=== PATIENT | male | born 1935 | race Caucasian/White ===

== ENCOUNTER 2018-05-08 11:29 | Inpatient (IN) | payer MEDICARE ==
[~2018-05-08] VITALS: Ht 182.9 cm; Wt 108.9 kg
[~2018-05-08 11:29] MED LIST: ASPI-482 PO; ATOR10TA PO; BREO ELLIPTA 11 EACH INH; BUME1TAB PO; CARV12.5 PO; CEFP200T PO; CYAN10005 PO; FERR-36 PO; FURO-68 PO; GLUC100018 PO; HYDR-2766 PO; LISI10TA2 PO; MULT1TAB52 PO; OMEG300C PO; POTA10TA PO
--- NOTE | 2018-05-08 12:19 | PHYS DOC ---
Past Medical History Past Medical History: CHF, Hypertension Past Surgical History: Coronary Bypass Surgery, Hip Replacement, Knee Replacement, Other Additional Past Surgical Histo: back surgery Alcohol Use: None Drug Use: None Adult General Chief Complaint Chief Complaint: dyspnea and choking episode HPI HPI 83 yo M presenting to the ed today after [facility] a [facility]He was seen by his sales service assistant 2 days ago who increased his lasix dose to 80 mg. NH reports increasing O2 requirement. The pt feels generally weak which is worse when he sits up. He denies any pain. ROS neg for f/c/n/v. Neg for cp. All other review of systems is negative unless otherwise noted in history of present illness. ED course: 83 yo M with worsing soa and increasing o2 requirement. On arrival he is between 3 and 4 l/min. otherwise, afebrile and well appearing. ekg, cxr, blood work ordered. Blood work shows elevated proBNP. Creatinine mildly elevated. Urinalysis not suggestive of infection. Chest x-ray shows cardiomegaly with atelectasis versus pneumonia associated with mild left pleural effusion. We will cover with antibiotics and give the patient IV Lasix. I spoke with Dr. Ahmadi the patient's primary care physician. We will admit the patient to the hospital consult cardiology and pulmonology. Review of Systems Review of Systems SEE ABOVE. Current Medications Current Medications Current Medications Medications (Trade) Dose Ordered Sig/Barry Start Time Stop Time Status Last Admin Dose Admin Furosemide (Lasix) 40 mg 1X ONCE 05/08/18 14:00 05/08/18 14:01 DC 05/08/18 14:30 40 MG Levofloxacin/ Dextrose 150 ml @ 100 mls/hr 1X ONCE 05/08/18 14:00 05/08/18 15:29 DC 05/08/18 14:35 100 MLS/HR Morphine Sulfate (Morphine Sulfate) 2 mg PRN Q2HR PRN 05/08/18 13:30 05/09/18 13:29 Moxifloxacin HCl 250 ml @ 250 mls/hr 1X ONCE 05/08/18 13:30 05/08/18 14:29 UNV Ondansetron HCl (Zofran) 4 mg PRN Q8HRS PRN 05/08/18 13:30 05/09/18 13:29 Allergies Allergies Allergies Coded Allergies Type Severity Reaction Last Updated Verified Penicillins Allergy Intermediate 09/12/15 Yes Physical Exam Physical Exam SEE ABOVE Constitutional: Well developed, well nourished, no acute distress, non-toxic appearance. [] HENT: Normocephalic, atraumatic, bilateral external ears normal, oropharynx moist, no oral exudates, nose normal. [] Eyes: PERRLA, EOMI, conjunctiva normal, no discharge. [] Neck: Normal range of motion, no tenderness, supple, no stridor. [] Cardiovascular:Heart rate regular rhythm, no murmur [] Lungs & Thorax: mild crackles in the bases without wheezing. Abdomen: Bowel sounds normal, soft, no tenderness, no masses, no pulsatile masses. [] Skin: Warm, dry, no erythema, no rash. [] Back: No tenderness, no CVA tenderness. [] Extremities: No tenderness, no cyanosis, no clubbing, ROM intact, no edema. [] Neurologic: Alert and oriented X 3, normal motor function, normal sensory function, no focal deficits noted. [] Psychologic: Affect normal, judgement normal, mood normal. [] Current Patient Data Vital Signs Vital Signs Date Time Temp Pulse Resp B/P (MAP) Pulse Ox O2 Delivery O2 Flow Rate FiO2 05/08/18 14:30 62 22 132/66 (88) 96 Nasal Cannula 2.0 05/08/18 11:31 98.0 98.0 Lab Values Laboratory Tests Test 05/08/18 12:14 05/08/18 13:02 White Blood Count 5.7 x10^3/uL (4.0-11.0) Red Blood Count 3.31 x10^6/uL (4.30-5.70) L Hemoglobin 11.1 g/dL (13.0-17.5) L Hematocrit 32.9 % (39.0-53.0) L Mean Corpuscular Volume 99 fL (79-100) Mean Corpuscular Hemoglobin 34 pg (25-35) Mean Corpuscular Hemoglobin Concent 34 g/dL (31-37) Red Cell Distribution Width 14.2 % (11.5-14.5) Platelet Count 148 x10^3/uL (140-400) Neutrophils (%) (Auto) 78 % (31-73) H Lymphocytes (%) (Auto) 10 % (24-48) L Monocytes (%) (Auto) 9 % (0-9) Eosinophils (%) (Auto) 2 % (0-3) Basophils (%) (Auto) 1 % (0-3) Neutrophils # (Auto) 4.5 x10^3uL (1.8-7.7) Lymphocytes # (Auto) 0.6 x10^3/uL (1.0-4.8) L Monocytes # (Auto) 0.5 x10^3/uL (0.0-1.1) Eosinophils # (Auto) 0.1 x10^3/uL (0.0-0.7) Basophils # (Auto) 0.0 x10^3/uL (0.0-0.2) Sodium Level 142 mmol/L (136-145) Potassium Level 4.5 mmol/L (3.5-5.1) Chloride Level 100 mmol/L (98-107) Carbon Dioxide Level 41 mmol/L (21-32) H Anion Gap 1 (6-14) L Blood Urea Nitrogen 33 mg/dL (8-26) H Creatinine 1.5 mg/dL (0.7-1.3) H Estimated GFR (Cockcroft-Gault) 44.5 Glucose Level 127 mg/dL (70-99) H Calcium Level 9.3 mg/dL (8.5-10.1) Total Bilirubin 0.7 mg/dL (0.2-1.0) Direct Bilirubin 0.2 mg/dL (0.0-0.2) Aspartate Amino Transferase (AST) 20 U/L (15-37) Alanine Aminotransferase (ALT) 17 U/L (16-63) Alkaline Phosphatase 70 U/L (46-116) Troponin I Quantitative 0.021 ng/mL (0.000-0.055) BJ-Sek-B-Type Natriuretic Peptide 4908 pg/mL (0-449) H Total Protein 7.4 g/dL (6.4-8.2) Albumin 3.0 g/dL (3.4-5.0) L Lipase 211 U/L (73-393) Urine Collection Type Unknown Urine Color Yellow Urine Clarity Clear Urine pH 6.0 Urine Specific [place] 1.015 Urine Protein Negative mg/dL (NEG-TRACE) Urine Glucose (UA) Negative mg/dL (NEG) Urine Ketones (Stick) Negative mg/dL (NEG) Urine Blood Negative (NEG) Urine Nitrite Negative (NEG) Urine Bilirubin Negative (NEG) Urine Urobilinogen Dipstick 1.0 mg/dL (0.2 mg/dL) Urine Leukocyte Esterase Negative (NEG) Urine RBC 1-2 /HPF (0-2) Urine WBC 1-4 /HPF (0-4) Urine Squamous Epithelial Cells Mod /LPF Urine Bacteria 0 /HPF (0-FEW) Urine Hyaline Casts Many /HPF Urine Mucus Mod /LPF Laboratory Tests 05/08/18 12:14 Laboratory Tests 05/08/18 12:14 EKG EKG EKG reviewed by myself shows bipaced rhythm with appropriate repolarization. reg rate. Not suggestive of acs. Radiology/Procedures Radiology/Procedures [] Course & Med Decision Making Course & Med Decision Making Pertinent Labs and Imaging studies reviewed. (See chart for details) [] Dragon Disclaimer Dragon Disclaimer This electronic medical record was generated, in whole or in part, using a voice recognition dictation system. Departure Departure Impression: Primary Impression: Hypoxia Additional Impressions: CHF (congestive heart failure) Pneumonia Disposition: ADMITTED INPATIENT Admitting Physician: Araseli Ahmadi Condition: STABLE Referrals: REAL GODINEZ DO (PCP) Problem Qualifiers TG GUERRERO MD May 08, 2018 12:19
--- NOTE | 2018-05-08 12:30 | RAD ---
CHEST AP ONLY dated 05/08/2018 12:09 PM. Comparison: 11/14/2015 Clinical Indication: shortness of breath. SINGLE UPRIGHT Findings: Portable exam performed. Heart and mediastinal contours are stable. Patient is status post median sternotomy. Interval placement of a 3-lead left subclavian pacer/AICD. Long bones are low, limiting evaluation. There is elevation of left hemidiaphragm. Patchy airspace disease at the left lung base with blunting of the left costophrenic sulcus, increased from prior study. There is been interval improvement in right basilar airspace disease and pleural effusion compared to the prior exam. No pneumothorax. Impression: 1. Left basilar airspace disease, atelectasis versus pneumonia. There is a small to moderate size left pleural effusion. 2. Cardiomegaly. Electronically signed by: Jonathan Moreira MD (05/08/2018 12:27 PM) [id number]
[2018-05-08 12:31] LABS: BASO % 1 % (0-3); EOS # 0.1 x10^3/uL (0.0-0.7); EOS % 2 % (0-3); HEMATOCRIT 32.9 % (39.0-53.0); HEMOGLOBIN 11.1 g/dL (13.0-17.5); LYMPH # 0.6 x10^3/uL (1.0-4.8); LYMPH % 10 % (24-48); MEAN CORPUSCULAR HEMOGLOBIN 34 pg (25-35); MEAN CORPUSCULAR HGB CONC 34 g/dL (31-37); MEAN CORPUSCULAR VOLUME 99 fL (79-100); MONO # 0.5 x10^3/uL (0.0-1.1); MONO % 9 % (0-9); NEUT # 4.5 x10^3uL (1.8-7.7); NEUT % 78 % (31-73); PLATELET COUNT 148 x10^3/uL (140-400); RED BLOOD COUNT 3.31 x10^6/uL (4.30-5.70); RED CELL DISTRIBUTION WIDTH 14.2 % (11.5-14.5); WHITE BLOOD COUNT 5.7 x10^3/uL (4.0-11.0)
[2018-05-08 12:39] LABS: CALCIUM 9.3 mg/dL (8.5-10.1); CREATININE 1.5 mg/dL (0.7-1.3); GFR 44.5; POTASSIUM 4.5 mmol/L (3.5-5.1)
[2018-05-08 12:47] LABS: DIRECT BILIRUBIN 0.2 mg/dL (0.0-0.2); TOTAL BILIRUBIN 0.7 mg/dL (0.2-1.0); TOTAL PROTEIN 7.4 g/dL (6.4-8.2)
--- NOTE | 2018-05-08 13:02 | EKG ---
[facility] [address] [place] [address] Test Date: 2018-05-08 Test Time: 12:01:30 Pat Name: EMI PIPER Department: Room: Gender: M Behaviorist: : 1935 Requested By: TG GUERRERO Order Number: [id number] Reading MD: Den Morel MD Measurements Intervals [place] Rate: 67 P: 0 CT: 142 QRS: 114 QRSD: 162 T: -60 QT: 462 QTc: 491 Interpretive Statements SR PROBABLE BI-V PACING Electronically Signed On 05-09-2018 10:49:30 CDT by Den Morel MD
[2018-05-08 13:19] LABS: BILIRUBIN,URINE NEGATIVE (NEG); CLARITY,URINE CLEAR; COLOR,URINE YELLOW; NITRITE,URINE NEGATIVE (NEG); PROTEIN,URINE NEGATIVE (NEG-TRACE)
[2018-05-08] MEDS ORDERED: MOXIFLOXACIN 400 MG IV ONE (13:30)
[2018-05-08] MEDS ORDERED: MORPHINE SULFATE 2 MG/ML VIAL. IV PRN (13:30)
[2018-05-08] MEDS ORDERED: ONDANSETRON PF 4 MG/2 ML VIAL. IV PRN (13:30)
[2018-05-08 13:39] LABS: BACTERIA,URINE 0 /HPF (0-FEW); SQUAMOUS EPITHELIAL CELL,UR MOD /LPF
[2018-05-08 13:40] LABS: HYALINE CASTS, URINE MANY /HPF
[2018-05-08] MEDS ORDERED: FUROSEMIDE 40 MG/4 ML VIAL. IVP ONE (14:00)
[2018-05-08 18:35] VITALS: BP 144/68
[2018-05-08 19:23] VITALS: BP 119/56
[2018-05-08] MEDS ORDERED: ACET500T68 PO (20:41)
[2018-05-08] MEDS ORDERED: FURO80TA72 PO (20:41)
[2018-05-08] MEDS ORDERED: ASCO-78 PO (20:41)
[2018-05-08] MEDS ORDERED: ESCITALOPRAM OX10 MG PO (20:41)
[2018-05-08] MEDS ORDERED: MINE120C TP (20:41)
[2018-05-08] MEDS ORDERED: METO100T7 PO (20:41)
[2018-05-08] MEDS ORDERED: SENN1TAB21 PO (20:41)
[2018-05-08] MEDS ORDERED: SENNOSIDES/DOCUSATE 8.6/50MG TABLET. PO PRN (20:45)
[2018-05-08] MEDS ORDERED: IPRATRPIUM/ALBUTEROL 0.5/2.5MG 3 ML NEBU. NEB ONE (21:00)
[2018-05-08] MEDS: MINERAL OIL/PETROLATUM TOPICAL CREAM 113GM JAR. TP SCH (21:15)
[2018-05-08] MEDS: ATORVASTATIN CALCIUM 10 MG TABLET. PO SCH (22:56)
[2018-05-08 23:19] VITALS: BP 125/67
[2018-05-09] MEDS ORDERED: ACETAMINOPHEN 500 MG TABLET PO SCH
[2018-05-09 02:27] VITALS: BP 121/65
[2018-05-09 04:38] LABS: CALCIUM 9.2 mg/dL (8.5-10.1); CREATININE 1.4 mg/dL (0.7-1.3); GFR 48.2; POTASSIUM 4.1 mmol/L (3.5-5.1)
[2018-05-09 04:41] LABS: BASO % 0 % (0-3); EOS # 0.1 x10^3/uL (0.0-0.7); EOS % 2 % (0-3); HEMATOCRIT 30.1 % (39.0-53.0); HEMOGLOBIN 10.2 g/dL (13.0-17.5); LYMPH # 0.7 x10^3/uL (1.0-4.8); LYMPH % 14 % (24-48); MEAN CORPUSCULAR HEMOGLOBIN 33 pg (25-35); MEAN CORPUSCULAR HGB CONC 34 g/dL (31-37); MEAN CORPUSCULAR VOLUME 99 fL (79-100); MONO # 0.6 x10^3/uL (0.0-1.1); MONO % 11 % (0-9); NEUT # 3.8 x10^3uL (1.8-7.7); NEUT % 73 % (31-73); PLATELET COUNT 134 x10^3/uL (140-400); RED BLOOD COUNT 3.04 x10^6/uL (4.30-5.70); RED CELL DISTRIBUTION WIDTH 14.1 % (11.5-14.5); WHITE BLOOD COUNT 5.3 x10^3/uL (4.0-11.0)
[2018-05-09 07:00] VITALS: BP 155/69
[2018-05-09] MEDS: IPRATRPIUM/ALBUTEROL 0.5/2.5MG 3 ML NEBU. NEB SCH ×4 (07:21→19:39)
[2018-05-09] MEDS: BUDESONIDE 0.5 MG/2 ML NEBU. NEB SCH ×2 (07:21→19:39)
[2018-05-09] MEDS ORDERED: METOPROLOL TART IMMED RELEASE 50 MG TABLET. PO SCH (08:00)
[2018-05-09] MEDS ORDERED: NON FORMULARY ITEM (Fluticasone/Vilanterol (Breo Ellipta 100-25 Mcg Inh) 1 PUFF) INH SCH (09:00)
[2018-05-09] MEDS: CYANOCOBALAMIN (VITAMIN B-12) 1,000 MCG TABLET. PO SCH (09:14)
[2018-05-09] MEDS: MINERAL OIL/PETROLATUM TOPICAL CREAM 113GM JAR. TP SCH ×2 (09:14→21:00)
[2018-05-09] MEDS: FERROUS SULFATE 325 MG TABLET. PO SCH (09:14)
[2018-05-09] MEDS: ASPIRIN ENTERIC COATED 81 MG TABLET.DR. PO SCH (09:14)
[2018-05-09] MEDS: CITALOPRAM 20 MG TABLET. PO SCH (09:15)
[2018-05-09] MEDS: ASCORBIC ACID 500 MG TABLET PO SCH (09:15)
--- NOTE | 2018-05-09 10:12 | PDOC2 ---
AMILCAR HOOD PRINCIPAL ARCHAEOLOGIST 05/09/18 1012: CARDIAC CONSULT DATE OF CONSULT Date of Consult DATE: 05/09/18 TIME: 09:59 REASON FOR CONSULT Reason for Consult: CHF REFERRING PHYSICIAN Referring Physician: Galdino SOURCE Source: Chart review, Patient HISTORY OF PRESENT ILLNESS HISTORY OF PRESENT ILLNESS This is an 83 yo male admitted complains of SOA and weakness. He is a poor historian. Reports that he has been SOA in the last 2 days. In the last week he has been progressively weaker. He has been urinating more but denies any chills, palpitations nor chest pain. No increased leg edema. He could not recall who he sees at [facility] cardiology and what brand his defibrillator is. He lives in a chcf with nearest relative his son. His lasix has just been increased to 80 mg 3 days ago. He uses O2 2LPM at the chcf. Currently reports no CP, SOA with supplemental O2 and laying supine without distress. No complains of chills or fever and no increased productive coughing. Verbalized that he does not move much at the [facility] home. PAST MEDICAL HISTORY Past Medical History Cardiovascular: CAD, CHF, HTN, Hyperlipidemia, Other (PVD, venous insufficiency ), Cardiomyopathy EF 35% Pulmonary: COPD, pulmonary HTN, PNA CENTRAL NERVOUS SYSTEM: ataxia GI: GERD Heme/Onc: Anemia Hepatobiliary: No pertinent hx Psych: Depression Rheumatologic: No pertinent hx Infectious disease: No pertinent hx ENT: CHILKOOT Renal/: CKD Endocrine: No pertinent hx Dermatology: No pertinent hx MSK: OA PAST SURGICAL HISTORY Past Surgical History CABG, Other (left hip and knee replacement, back sx), AICD FAMILY HISTORY Family History: Diabetes SOCIAL HISTORY Smoke: No ALCOHOL: none Drugs: None Lives: Assisted CURRENT MEDICATIONS CURRENT MEDICATIONS Current Medications Medications (Trade) Dose Ordered Sig/Barry Route PRN Reason Start Time Stop Time Status Last Admin Dose Admin Furosemide (Lasix) 40 mg 1X ONCE IVP 05/08/18 14:00 05/08/18 14:01 DC 05/08/18 14:30 Levofloxacin/ Dextrose 150 ml @ 100 mls/hr 1X ONCE IV 05/08/18 14:00 05/08/18 15:29 DC 05/08/18 14:35 Aspirin (Ecotrin) 81 mg DAILY PO 05/09/18 09:00 05/09/18 09:14 Atorvastatin Calcium (Lipitor) 10 mg QHS PO 05/08/18 21:15 05/08/18 22:56 Cyanocobalamin (Vitamin B-12) 1,000 mcg DAILY PO 05/09/18 09:00 05/09/18 09:14 Ferrous Sulfate (Feosol) 325 mg DAILY PO 05/09/18 09:00 05/09/18 09:14 Multi-Ingred Cream/Lotion/Oil/ Oint (Hydrocerin Cream) 1 toby BID TP 05/08/18 21:15 05/09/18 09:14 Ascorbic Acid (Vitamin C) 500 mg DAILY08 PO 05/09/18 08:00 05/09/18 09:15 Citalopram Hydrobromide (CeleXA) 20 mg DAILY PO 05/09/18 09:00 05/09/18 09:15 Metoprolol Tartrate (Lopressor) 100 mg DAILY08 PO 05/09/18 08:00 05/09/18 09:15 Albuterol/ Ipratropium (Duoneb) 3 ml RTQID [facility] 05/09/18 08:00 05/09/18 07:21 Albuterol/ Ipratropium (Duoneb) 3 ml 1X ONCE NEB 05/08/18 21:00 05/08/18 21:01 DC 05/08/18 20:57 Budesonide (Pulmicort) 0.5 mg RTBID [facility] 05/09/18 08:00 05/09/18 07:21 ALLERGIES ALLERGIES: Coded Allergies: Penicillins (Verified Allergy, Intermediate, 09/12/15) ROS Review of System limited, poor historian PHYSICAL EXAM General: Alert, Cooperative, No acute distress HEENT: Atraumatic, Mucous membr. moist/pink Lungs: Other (basilar crackles) Heart: Regular rate (atrial paced with intermittent PVCs. ), Other (4/6 systolic murmur to DEMOND borderr) Abdomen: Soft, No tenderness Extremities: No cyanosis, No edema Skin: Other (RLE wound with dressing; LE brownish hyperpigmentation) Neuro: Normal speech, Sensation intact Psych/Mental Status: Other (falt affect) MUSCULOSKELETAL: Osteoarthritic changes both hands, Other (significant hammertoes) VITALS VITALS Vital Signs Date Time Temp Pulse Resp B/P (MAP) Pulse Ox O2 Delivery O2 Flow Rate FiO2 05/09/18 09:15 65 05/09/18 07:12 97 Nasal Cannula 2.0 05/09/18 07:00 98.5 22 155/69 (97) 98.5 LABS Lab: Laboratory Tests Test 05/08/18 12:14 05/08/18 13:02 05/09/18 03:45 White Blood Count 5.7 x10^3/uL (4.0-11.0) 5.3 x10^3/uL (4.0-11.0) Red Blood Count 3.31 x10^6/uL (4.30-5.70) 3.04 x10^6/uL (4.30-5.70) Hemoglobin 11.1 g/dL (13.0-17.5) 10.2 g/dL (13.0-17.5) Hematocrit 32.9 % (39.0-53.0) 30.1 % (39.0-53.0) Mean Corpuscular Volume 99 fL (79-100) 99 fL (79-100) Mean Corpuscular Hemoglobin 34 pg (25-35) 33 pg (25-35) Mean Corpuscular Hemoglobin Concent 34 g/dL (31-37) 34 g/dL (31-37) Red Cell Distribution Width 14.2 % (11.5-14.5) 14.1 % (11.5-14.5) Platelet Count 148 x10^3/uL (140-400) 134 x10^3/uL (140-400) Neutrophils (%) (Auto) 78 % (31-73) 73 % (31-73) Lymphocytes (%) (Auto) 10 % (24-48) 14 % (24-48) Monocytes (%) (Auto) 9 % (0-9) 11 % (0-9) Eosinophils (%) (Auto) 2 % (0-3) 2 % (0-3) Basophils (%) (Auto) 1 % (0-3) 0 % (0-3) Neutrophils # (Auto) 4.5 x10^3uL (1.8-7.7) 3.8 x10^3uL (1.8-7.7) Lymphocytes # (Auto) 0.6 x10^3/uL (1.0-4.8) 0.7 x10^3/uL (1.0-4.8) Monocytes # (Auto) 0.5 x10^3/uL (0.0-1.1) 0.6 x10^3/uL (0.0-1.1) Eosinophils # (Auto) 0.1 x10^3/uL (0.0-0.7) 0.1 x10^3/uL (0.0-0.7) Basophils # (Auto) 0.0 x10^3/uL (0.0-0.2) 0.0 x10^3/uL (0.0-0.2) Sodium Level 142 mmol/L (136-145) 143 mmol/L (136-145) Potassium Level 4.5 mmol/L (3.5-5.1) 4.1 mmol/L (3.5-5.1) Chloride Level 100 mmol/L (98-107) 101 mmol/L (98-107) Carbon Dioxide Level 41 mmol/L (21-32) 43 mmol/L (21-32) Anion Gap 1 (6-14) -1 (6-14) Blood Urea Nitrogen 33 mg/dL (8-26) 32 mg/dL (8-26) Creatinine 1.5 mg/dL (0.7-1.3) 1.4 mg/dL (0.7-1.3) Estimated GFR (Cockcroft-Gault) 44.5 48.2 Glucose Level 127 mg/dL (70-99) 104 mg/dL (70-99) Calcium Level 9.3 mg/dL (8.5-10.1) 9.2 mg/dL (8.5-10.1) Total Bilirubin 0.7 mg/dL (0.2-1.0) Direct Bilirubin 0.2 mg/dL (0.0-0.2) Aspartate Amino Transf (AST/SGOT) 20 U/L (15-37) Alanine Aminotransferase (ALT/SGPT) 17 U/L (16-63) Alkaline Phosphatase 70 U/L (46-116) Troponin I Quantitative 0.021 ng/mL (0.000-0.055) DQ-Owb-S-Type Natriuretic Peptide 4908 pg/mL (0-449) Total Protein 7.4 g/dL (6.4-8.2) Albumin 3.0 g/dL (3.4-5.0) Lipase 211 U/L (73-393) Urine Collection Type Unknown Urine Color Yellow Urine Clarity Clear Urine pH 6.0 Urine Specific [place] 1.015 Urine Protein Negative mg/dL (NEG-TRACE) Urine Glucose (UA) Negative mg/dL (NEG) Urine Ketones (Stick) Negative mg/dL (NEG) Urine Blood Negative (NEG) Urine Nitrite Negative (NEG) Urine Bilirubin Negative (NEG) Urine Urobilinogen Dipstick 1.0 mg/dL (0.2 mg/dL) Urine Leukocyte Esterase Negative (NEG) Urine RBC 1-2 /HPF (0-2) Urine WBC 1-4 /HPF (0-4) Urine Squamous Epithelial Cells Mod /LPF Urine Bacteria 0 /HPF (0-FEW) Urine Hyaline Casts Many /HPF Urine Mucus Mod /LPF ECHOCARDIOGRAM ECHOCARDIOGRAM <Conclusion> Severe hypokinesis of mid to distal anterior and anteroseptal baca and the apical wall. The Ejection Fraction is estimated at 30-35%. The left atrium is mildly dilated. There is mild valvular aortic stenosis. Mild aortic regurgitation. Trace mitral regurgitation. Mild tricuspid regurgitation. There is moderate pulmonary hypertension. The PA pressure was estimated at 60 mmHg. There is no evidence of significant pericardial effusion. DATE: 11/11/15 1139 STRESS TEST STRESS TEST Conclusion 1. Regadenoson cardioisotope stress test showed moderate infarct involving the distal anterior wall, apical wall and inferoapical wall with small amount of ngozi-infarct ischemia. 2. Apical wall hypokinesis with ejection fraction calculated at 44%. 3. Low to intermediate risk for cardiac events. DATE: 11/16/15 1433 ASSESSMENT/PLAN ASSESSMENT/PLAN 1. Acute on chronic systolic CHF: follows at [facility] cardiology per pt. 2. COPD/pulmonary HTN/pleural effusion/possible aspiration: O2 dependent. 3. AICD in situ: intermittent atrial pacing. 4. ICM: last known EF at 35% 5. HTN; controlled 6. HLP 7. CAD: past CABG 8. suspect CKD3 9. 10. Debility/ataxia Recommendations 1. TTE, TSH lipids 2. interrogate device once brand is known 3. lasix therapy. 4. Continue with secondary prevention 5. Pulmonary consult pending. 6. Speech eval. ANY MCGRAW MD 05/09/18 1527: CARDIAC CONSULT ASSESSMENT/PLAN ASSESSMENT/PLAN Patient seen and examined. Agree with above nurse practitioner note. 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 No obvious effusion is noted in the pericardial space. Given his debility and multiple comorbidities would suggest conservative management. If after optimization of his pulmonary status he continues to have dyspnea could then consider a right heart catheterization if needed. Thank you for this consultation. We will follow along with you. AMILCAR HOOD APRN May 09, 2018 10:12 ANY MCGRAW MD May 09, 2018 15:27
[2018-05-09 10:34] LABS: CHOLESTEROL/HDL RATIO 3.7
[2018-05-09 11:00] VITALS: BP 139/77
[2018-05-09] MEDS: FUROSEMIDE 40 MG/4 ML VIAL. IVP SCH ×2 (12:17→19:18)
--- NOTE | 2018-05-09 12:29 | CONS ---
DATE OF CONSULTATION: ATTENDING PHYSICIAN: Dr. Ahmadi. REASON FOR CONSULTATION: Pleural effusion. HISTORY OF PRESENT ILLNESS: The patient is an 83-year-old male who has no significant history of tobacco use. He utilizes oxygen at home and recently. He was brought into the hospital after having some increasing dyspnea and some vague chest wall pain in the left side. He has some choking episode as well. The patient has recently had an increase in the dose of Lasix. He has chronic venous stasis and lower extremity edema. [facility] report suggests that he has been requiring increasing amount of oxygen. Denies any headaches and no cough, no chest pain, no anterior chest pain. No nausea or vomiting, no diarrhea, no dysuria. No focal weakness. No skin rash. He does have venous stasis in the lower extremities. I have reviewed his chest x-ray and it shows that there is increase in the size of the effusion, which also appears to be partially loculated in the left side. There is markedly elevated left hemidiaphragm. There may be some infiltrate in the left base as well. We have been asked to see him for further evaluation. PAST MEDICAL HISTORY: History of CHF, history of previous echo in 2016 with an EF of 30-35%. History of elevated left hemidiaphragm and history of hypertension. PAST SURGICAL HISTORY: Coronary artery bypass surgery, hip replacement, knee replacement and back surgery. ALLERGIES: PENICILLIN. MEDICATIONS: Reviewed as listed in the MRAD including diuretics and bronchodilators. REVIEW OF SYSTEMS: Twelve-point system obtained. Pertinent positives discussed in my history of present illness, otherwise noncontributory. All systems that were negative were reviewed as well. SOCIAL HISTORY: Nonsmoker. PHYSICAL EXAMINATION: VITAL SIGNS: Reviewed. Pulse ox 91% on 2 liters. Afebrile. HEENT: Sclerae nonicteric. NECK: Supple. LUNGS: Diminished breath sounds left base. CARDIOVASCULAR: Regular rate and rhythm. ABDOMEN: Soft. EXTREMITIES: With venous stasis and lower extremity edema and erythema. LABORATORY DATA: Reviewed. White cell count 5.3, hemoglobin 10.2, and platelets of 134. BUN is 32 and creatinine 1.4. IMPRESSION: 1. Acute hypoxic respiratory failure secondary to increasing left-sided pleural effusion. Likely etiology is related to congestive heart failure, acute on chronic. 2. Highly suspected [id number] systolic heart failure with increasing left-sided effusion. 3. Abnormal chest x-ray with increasing left-sided effusion and also markedly elevated left hemidiaphragm with some compressive atelectasis versus infiltrate in the left lower lobe. The effusion appears to be partially loculated. We will obtain noncontrast CT chest for further evaluation. 4. Acute kidney injury. 5. No significant history of tobacco use. RECOMMENDATIONS: 1. Continue with present diuresis. 2. Follow up another echocardiogram, last echo had an EF of 30-35%. 3. Noncontrast CT chest to better assess the need for thoracentesis. d/w patient. He is agreeable with procedure if needed. 4. Continue bronchodilators. 5. Continue oxygen. 6. At this time, we will hold off on any antibiotics until CT chest is done. 7. Discussed with RN and we will follow along with you. DEBRA AARON MD DR: REJI/thomas JOB#: [id number] / [id number] JACQUES
--- NOTE | 2018-05-09 14:13 | HP ---
ADMIT DATE: 05/08/2018 HISTORY OF PRESENT ILLNESS: The patient is an 83-year-old male patient, a resident at [facility] in [place], who was brought to the Emergency Room as he was noted to have a choking episode with increasing dyspnea at the assisted. He was seen by his nurse practitioner 2 days ago and increased Lasix to 80 mg. He is normally on 2 liters of oxygen. Apparently, they increased the oxygen to 5 liters and continued to be hypoxic. He felt generally weak, which is worst when he sits up. He denied any chest pain. He was evaluated in the Emergency Room where he was afebrile. His ABG, chest x-ray and all lab works were done. He has elevated proBNP. His creatinine was mildly elevated. Urinalysis showed no evidence of infection and chest x-ray shows cardiomegaly with atelectasis versus pneumonia associated with mild left pleural effusion. He was started on IV antibiotic and continued all his medication. He was admitted to be seen by the Cardiology team as well as the wharf worker. PAST MEDICAL HISTORY: Significant for hypertension, coronary artery disease, chronic congestive heart failure, hyperlipidemia, ischemic cardiomyopathy. He has lumbar spinal stenosis, paroxysmal SVT, status post CABG, his ejection fraction is approximately 35% by echo on 04/26/2017. He has a biventricular ICD. He is known to have venous insufficiency, bilateral lower extremity edema, lower extremity venous stasis ulcers, generalized weakness and recurrent falls. PAST SURGICAL HISTORY: Significant for coronary artery bypass graft surgery and biventricular ____ placement. ALLERGIES: He is allergic to PENICILLIN. SOCIAL HISTORY: He apparently lives on his own; however, currently he is a resident at [facility]. He never smoked, never used smokeless tobacco, does not use any recreational drugs. He used to be a oneill. FAMILY HISTORY: Positive for coronary artery disease and heart attack in his father and skin cancer in his father. REVIEW OF SYSTEMS: The patient stated that he denied any nausea or vomiting. He did complain of cough. Denied any chest pain. He did complain of shortness of breath, generalized weakness. MEDICATIONS: He is currently on following medications: He is on ferrous sulfate 325 mg daily, atorvastatin calcium 10 mg at bedtime, metoprolol tartrate 100 mg daily, aspirin 81 mg once a day, acetaminophen 500 mg every 6 hours, escitalopram oxalate 10 mg daily, potassium chloride 10 mEq once a day, furosemide 40 mg 3 times a week and fluticasone/vilanterol for Breo Ellipta 1 inhalation daily. He is on Senna-S 2 tablets once a day, mineral oil ____ twice a day, cyanocobalamin (vitamin B12) 1000 mcg once a day, ascorbate 500 mg once a day. PHYSICAL EXAMINATION: GENERAL: On arrival to the Emergency Room, he looked pale, but not jaundiced, cyanosis, or thyromegaly. No jugular venous distension. No lower limb edema. VITAL SIGNS: His heart rate was 60, blood pressure was 125/66, temperature was 98, respiratory rate was 18 and oxygen saturation was 95% on 3 liters oxygen. HEAD, EYES, EARS, NOSE AND THROAT: Showed normocephalic, atraumatic. NECK: Supple. HEART: Showed normal first and second heart sounds. No gallop, rub or murmur. CHEST: Clear to auscultation. No crepitation or rhonchi. ABDOMEN: Slightly distended, soft, nontender. No guarding or rigidity. No organomegaly. Hernial orifice intact. Bowel sounds normal. NEUROLOGIC: He was hard of hearing, otherwise all other cranial nerves are intact. He moves his upper extremities to much good extent than lower extremities. He is mostly bedbound, chair bound. EXTREMITIES: Showed no clubbing, cyanosis or edema, although the patient has chronic venous stasis. LABORATORY DATA: On admission showed a white cell count 5700, hemoglobin 11, hematocrit 33, MCV 99, and platelet count of 148,000. His chemistry showed serum sodium 142, potassium 4.5, chloride 100, bicarbonate 41, anion gap of 1, BUN 33, creatinine was 1.5, estimated GFR was 44 mL per minute, his glucose 127, calcium was 9.3. Total bilirubin, AST, ALT, alkaline phosphatase were normal. His total protein was 7.4, albumin 3 and serum lipase was 200. His is beta natriuretic peptide was 4900. ASSESSMENT AND PLAN: The patient was admitted, continued on all his medication and consulted the Cardiology team as well as the wharf worker. Will do 2 more sets of cardiac enzyme. First set of cardiac enzyme was slightly elevated at 0.021 and decide further management accordingly. MESFIN TERRELL MD DR: Beena JOB#: [id number] / [id number]
--- NOTE | 2018-05-09 14:34 | RAD ---
CT of the chest without contrast, 05/09/2018: HISTORY: Loculated left pleural effusion Noncontrast scans were obtained as requested. Comparison is made to a study from 09/12/2015. There has been a previous median sternotomy. Transvenous pacing leads extend into the heart. There are also old epicardial leads present anteriorly. The heart is generally enlarged. A calcification at the cardiac apex is probably pericardial. There is calcific plaquing and tortuosity of the thoracic aorta. The ascending aorta measures 4.5 cm in width. It appears unchanged since 09/12/2015. There is extensive coronary artery calcification. No mediastinal adenopathy is seen. There is chronic elevation of the left hemidiaphragm. There is a large left pleural effusion which has increased in size since the previous study. The left lower lobe is completely atelectatic. There is moderate partial atelectasis of the left upper lobe. A small amount of right-sided pleural fluid is present. There is mild atelectasis posteriorly in the right lower lobe. The aerated portions of both lungs demonstrate hazy groundglass opacities and interlobular septal thickening most likely due to edema. There is a mild right convexity thoracic scoliosis with moderate multilevel degenerative change. IMPRESSION: 1. Increasing large left pleural effusion with complete atelectasis of the left lower lobe and partial atelectasis of the left upper lobe. 2. Small right pleural effusion with mild right lower lobe atelectasis. 3. Hazy groundglass opacities and interlobular septal thickening in both lungs suggesting mild pulmonary edema. 4. Cardiomegaly with extensive coronary artery calcifications. 5. Unchanged dilatation of the ascending aorta. PQRS Compliance Statement: One or more of the following individualized dose reduction techniques were utilized for this examination: 1. Automated exposure control 2. Adjustment of the mA and/or kV according to patient size 3. Use of iterative reconstruction technique Electronically signed by: Yvon Trinidad MD (05/09/2018 2:31 PM) [facility]
[2018-05-09 15:00] VITALS: BP 157/73
--- NOTE | 2018-05-09 15:40 | CARD ---
MR#: [id number] Date of Study: 05/09/2018 Ordering Physician: AMILCAR HOOD, Referring Physician: MESFIN TERRELL Tech: Rajni Mathias RDCS APPROVED REPORT EXAM: Two-dimensional and M-mode echocardiogram with Doppler and color Doppler. Other Information Quality : Good INDICATION Congestive Heart Failure 2D DIMENSIONS RVDd1.7 (2.9-3.5cm)Left Atrium(2D)3.6 (1.6-4.0cm) IVSd1.0 (0.7-1.1cm)Aortic Root(2D)3.6 (2.0-3.7cm) LVDd5.0 (3.9-5.9cm)LVOT Diameter2.4 (1.8-2.4cm) PWd1.0 (0.7-1.1cm)LVDs3.3 (2.5-4.0cm) FS (%) 35.5 %SV78.3 ml M-Mode DIMENSIONS Aortic Cusp Exc1.28 (1.5-2.0cm) Aortic Valve AoV Peak Chan.242.7cm/sAoV VTI53.0cm AO Peak GR.23.6mmHgLVOT VTI 23.07cm AO Mean GR.15mmHgAVA (VTI)2.00cm2 AI P 1/2 Qtqg737fp Mitral Valve MV E Tnzxewxk95.8cm/sMV DECEL [id number] MV A Srccpgna55.7cm/sE/A Ratio3.3 TDI Lateral E' P. V4.40cm/sMedial E' P. V3.91cm/s E/Lateral E'21.5E/Medial E'24.2 Tricuspid Valve TR P. Qlodcqjx917pj/sRAP IDOQSUQV4ymBj TR Peak Gr.40wrKgHRHH05jhPj Pulmonary Vein S1 Bpeztucx74.2cm/sS2 Nfnvbnam27.10cm/s D2 Ealpmhtx05.1cm/s LEFT VENTRICLE The left ventricle is normal size. There is normal left ventricular wall thickness. The Ejection Frac tion is 55%.. Apical wall is akinetic. Transmitral Doppler flow pattern is consistent with restrictiv e diastolic dysfunction. RIGHT VENTRICLE The right ventricle is normal size. The right ventricular systolic function is normal. There is a pac emaker lead in the right ventricle. ATRIA The left atrium size is normal. The right atrium size is normal. A pacemaker is seen in the right atr ium consistent with history. The interatrial septum is intact with no evidence for an atrial septal d efect or patent foramen ovale as noted on 2-D or Doppler imaging. AORTIC VALVE The aortic valve is moderately thickened. Doppler and Color Flow revealed mild aortic regurgitation. There is no significant aortic valvular stenosis. MITRAL VALVE The mitral valve is calcified but opens well. There is no evidence of mitral valve prolapse. There is no mitral valve stenosis. Doppler and Color Flow revealed no mitral valve regurgitation noted. TRICUSPID VALVE The tricuspid valve is normal in structure and function. Doppler and Color Flow revealed trace tricus pid regurgitation. There is mild pulmonary hypertension. The PA pressure was estimated at 39 mmHg. Th ere is no tricuspid valve stenosis. PULMONIC VALVE The pulmonic valve is not well visualized. Doppler and Color Flow revealed no pulmonic valvular regur gitation. There is no pulmonic valvular stenosis. GREAT VESSELS The aortic root is normal in size. The ascending aorta is normal in size. The IVC was not visualized. PERICARDIAL EFFUSION There is no evidence of significant pericardial effusion. Critical Notification Critical Value: No <Conclusion> Apical wall is akinetic. The Ejection Fraction is 55%.. Transmitral Doppler flow pattern is consistent with restrictive diastolic dysfunction. A pacemaker is seen in the right atrium and right ventricle consistent with history. Mild aortic regurgitation. Trace tricuspid regurgitation. The PA pressure was estimated at 39 mmHg. There is no evidence of significant pericardial effusion. Signed by : Yogi Ch, Electronically Approved : 05/09/2018 15:40:20
[2018-05-09] MEDS: ATORVASTATIN CALCIUM 10 MG TABLET. PO SCH (19:17)
[2018-05-09] MEDS: ACETAMINOPHEN 500 MG TABLET PO PRN (19:17)
[2018-05-09 19:42] VITALS: BP 131/60
[2018-05-09 23:39] VITALS: BP 125/71
[2018-05-10] VITALS (7 sets, daily range): BP systolic 104–144; BP diastolic 60–72
[2018-05-10] MEDS: BUDESONIDE 0.5 MG/2 ML NEBU. NEB SCH ×2 (07:16→20:10)
[2018-05-10] MEDS: IPRATRPIUM/ALBUTEROL 0.5/2.5MG 3 ML NEBU. NEB SCH ×4 (07:17→20:10)
[2018-05-10 08:49] LABS: PROTHROMBIN TIME PATIENT 14.9 SEC (11.7-14.0)
[2018-05-10] MEDS: MINERAL OIL/PETROLATUM TOPICAL CREAM 113GM JAR. TP SCH ×2 (09:00→20:47)
[2018-05-10] MEDS: FUROSEMIDE 40 MG/4 ML VIAL. IVP SCH ×2 (09:00→15:22)
--- NOTE | 2018-05-10 12:14 | PDOC ---
PULMONARY PROGRESS NOTES Subjective no soa Vitals Vital Signs Date Time Temp Pulse Resp B/P (MAP) Pulse Ox O2 Delivery O2 Flow Rate FiO2 05/10/18 12:05 Nasal Cannula 2.0 05/10/18 11:10 97.7 62 18 142/72 (95) 91 97.7 General: Alert, No acute distress Lungs: Other (decrease bs left base) Cardiovascular: S1, S2, Other Abdomen: Soft, Non-tender Extremities: Other (1+edema) Labs Laboratory Tests Test 05/08/18 12:14 05/08/18 13:02 05/08/18 22:30 05/09/18 03:45 White Blood Count 5.7 x10^3/uL (4.0-11.0) 5.3 x10^3/uL (4.0-11.0) Red Blood Count 3.31 x10^6/uL (4.30-5.70) 3.04 x10^6/uL (4.30-5.70) Hemoglobin 11.1 g/dL (13.0-17.5) 10.2 g/dL (13.0-17.5) Hematocrit 32.9 % (39.0-53.0) 30.1 % (39.0-53.0) Mean Corpuscular Volume 99 fL (79-100) 99 fL (79-100) Mean Corpuscular Hemoglobin 34 pg (25-35) 33 pg (25-35) Mean Corpuscular Hemoglobin Concent 34 g/dL (31-37) 34 g/dL (31-37) Red Cell Distribution Width 14.2 % (11.5-14.5) 14.1 % (11.5-14.5) Platelet Count 148 x10^3/uL (140-400) 134 x10^3/uL (140-400) Neutrophils (%) (Auto) 78 % (31-73) 73 % (31-73) Lymphocytes (%) (Auto) 10 % (24-48) 14 % (24-48) Monocytes (%) (Auto) 9 % (0-9) 11 % (0-9) Eosinophils (%) (Auto) 2 % (0-3) 2 % (0-3) Basophils (%) (Auto) 1 % (0-3) 0 % (0-3) Neutrophils # (Auto) 4.5 x10^3uL (1.8-7.7) 3.8 x10^3uL (1.8-7.7) Lymphocytes # (Auto) 0.6 x10^3/uL (1.0-4.8) 0.7 x10^3/uL (1.0-4.8) Monocytes # (Auto) 0.5 x10^3/uL (0.0-1.1) 0.6 x10^3/uL (0.0-1.1) Eosinophils # (Auto) 0.1 x10^3/uL (0.0-0.7) 0.1 x10^3/uL (0.0-0.7) Basophils # (Auto) 0.0 x10^3/uL (0.0-0.2) 0.0 x10^3/uL (0.0-0.2) Sodium Level 142 mmol/L (136-145) 143 mmol/L (136-145) Potassium Level 4.5 mmol/L (3.5-5.1) 4.1 mmol/L (3.5-5.1) Chloride Level 100 mmol/L (98-107) 101 mmol/L (98-107) Carbon Dioxide Level 41 mmol/L (21-32) 43 mmol/L (21-32) Anion Gap 1 (6-14) -1 (6-14) Blood Urea Nitrogen 33 mg/dL (8-26) 32 mg/dL (8-26) Creatinine 1.5 mg/dL (0.7-1.3) 1.4 mg/dL (0.7-1.3) Estimated GFR (Cockcroft-Gault) 44.5 48.2 Glucose Level 127 mg/dL (70-99) 104 mg/dL (70-99) Calcium Level 9.3 mg/dL (8.5-10.1) 9.2 mg/dL (8.5-10.1) Total Bilirubin 0.7 mg/dL (0.2-1.0) Direct Bilirubin 0.2 mg/dL (0.0-0.2) Aspartate Amino Transf (AST/SGOT) 20 U/L (15-37) Alanine Aminotransferase (ALT/SGPT) 17 U/L (16-63) Alkaline Phosphatase 70 U/L (46-116) Troponin I Quantitative 0.021 ng/mL (0.000-0.055) ER-Gst-N-Type Natriuretic Peptide 4908 pg/mL (0-449) Total Protein 7.4 g/dL (6.4-8.2) Albumin 3.0 g/dL (3.4-5.0) Lipase 211 U/L (73-393) Urine Collection Type Unknown Urine Color Yellow Urine Clarity Clear Urine pH 6.0 Urine Specific [place] 1.015 Urine Protein Negative mg/dL (NEG-TRACE) Urine Glucose (UA) Negative mg/dL (NEG) Urine Ketones (Stick) Negative mg/dL (NEG) Urine Blood Negative (NEG) Urine Nitrite Negative (NEG) Urine Bilirubin Negative (NEG) Urine Urobilinogen Dipstick 1.0 mg/dL (0.2 mg/dL) Urine Leukocyte Esterase Negative (NEG) Urine RBC 1-2 /HPF (0-2) Urine WBC 1-4 /HPF (0-4) Urine Squamous Epithelial Cells Mod /LPF Urine Bacteria 0 /HPF (0-FEW) Urine Hyaline Casts Many /HPF Urine Mucus Mod /LPF Nasal Screen MRSA (PCR) Negative (Negative) Magnesium Level 2.2 mg/dL (1.8-2.4) Triglycerides Level 36 mg/dL (0-150) Cholesterol Level 111 mg/dL (0-200) LDL Cholesterol, Calculated 74 mg/dL (0-100) VLDL Cholesterol, Calculated 7 mg/dL (0-40) Non-HDL Cholesterol Calculated 81 mg/dL (0-129) HDL Cholesterol 30 mg/dL (40-60) Cholesterol/HDL Ratio 3.7 Thyroid Stimulating Hormone (TSH) 1.289 uIU/mL (0.358-3.74) Test 05/10/18 08:30 Prothrombin Time 14.9 SEC (11.7-14.0) Prothromb Time International Ratio 1.2 (0.8-1.1) Activated Partial Thromboplast Time 30 SEC (24-38) Laboratory Tests Test 05/10/18 08:30 Prothrombin Time 14.9 SEC (11.7-14.0) Prothromb Time International Ratio 1.2 (0.8-1.1) Activated Partial Thromboplast Time 30 SEC (24-38) Medications Active Scripts Medications Dose Route/Sig Max Daily Dose Days Date Category Dose Instructions Vitamin C (Ascorbate Calcium) 500 Mg Tablet 500 Mg PO DAILY08 05/08/18 Reported Senna Plus Tablet (Sennosides/Docusate Sodium) 1 Each Tablet 2 Each PO PRN DAILY PRN 05/08/18 Reported Metoprolol Tartrate 100 Mg Tablet 100 Mg PO DAILY08 05/08/18 Reported Lasix (Furosemide) 80 Mg Tablet 1 Tab PO DAILY 05/08/18 Reported Eucerin Creme (Mineral Oil/White Petrolatum) 120 Gm Cream..g. 1 Deven TP BID 05/08/18 Reported apply to lower legs bid Escitalopram Oxalate 10 Mg Tablet 1 Tab PO DAILY 05/08/18 Reported Acetaminophen 500 Mg Tablet 1 Tab PO Q6HRS 05/08/18 Reported Breo Ellipta 100-25 Mcg Inh (Fluticasone/Vilanterol) 1 Each Aer.pow.ba 1 Puff INH DAILY 30 11/17/15 Rx Vitamin B-12 (Cyanocobalamin (Vitamin B-12)) 1,000 Mcg Tablet 1,000 Mcg PO DAILY 09/12/15 Reported Lasix (Furosemide) 40 Mg Tablet 40 Mg PO 3X/WEEK 09/12/15 Reported Iron (Ferrous Sulfate) 325 Mg Tablet 325 Mg PO DAILY 09/12/15 Reported Aspir 81 (Aspirin) 81 Mg Tablet.dr 1 Tab PO DAILY 07/15/14 Reported Lipitor (Atorvastatin Calcium) 10 Mg Tablet 1 Tab PO QHS 07/15/14 Reported K-Tab (Potassium Chloride) 10 Meq Tablet.er 10 Meq PO DAILY 07/15/14 Reported Impression . 1. Acute hypoxic respiratory failure secondary to increasing left-sided pleural effusion. Likely etiology is related to congestive heart failure, acute on chronic. 2. Highly suspected wvcly-uw-vuycxtn systolic heart failure with increasing left-sided effusion. 3. Abnormal chest x-ray with increasing left-sided effusion and also markedly elevated left hemidiaphragm with some compressive atelectasis versus infiltrate in the left lower lobe. The effusion appears to be partially loculated. We will obtain noncontrast CT chest for further evaluation. 4. Acute kidney injury. 5. No significant history of tobacco use. Plan . 1. Continue with present diuresis. 2. CMP/ last echo had an EF of 30-35%.recent echo with diastolic dysfunction/ normal EF 3. Noncontrast CT chest c/w moderate left effusion. thoracentesis today. d/w patient. He is agreeable with procedure / rn d/w son as well 4. Continue bronchodilators. 5. Continue oxygen. 6. At this time, we will hold off on any antibiotics 7. Discussed with RN and we will follow along with you. DEBRA AARON MD May 10, 2018 12:14
[2018-05-10] MEDS ORDERED: LIDOCAINE WITH 8.4% SOD BICARB 3 ML DISP.SYRIN. ONE (13:14)
[2018-05-10] MEDS ORDERED: LIDOCAINE WITH 8.4% SOD BICARB 3 ML DISP.SYRIN. INJ ONE (13:45)
[2018-05-10] MEDS: FERROUS SULFATE 325 MG TABLET. PO SCH (14:52)
[2018-05-10] MEDS: ASPIRIN ENTERIC COATED 81 MG TABLET.DR. PO SCH (14:52)
[2018-05-10] MEDS: CITALOPRAM 20 MG TABLET. PO SCH (14:52)
[2018-05-10] MEDS: ASCORBIC ACID 500 MG TABLET PO SCH (14:52)
[2018-05-10] MEDS: METOPROLOL SUCC 24HR ER 100 MG TAB.ER.24H. PO SCH (14:52)
--- NOTE | 2018-05-10 14:53 | PDOC ---
AMILCAR HOOD AVIATION TACTICAL READINESS OFFICER 05/10/18 1453: CARDIO Progress Notes Date and Time Date of Service 05/10/2018 Time of Evaluation 1310 Subjective Subjective: No Chest Pain, No shortness of breath, No Palpitations Vitals Vitals Vital Signs Date Time Temp Pulse Resp B/P (MAP) Pulse Ox O2 Delivery O2 Flow Rate FiO2 05/10/18 13:20 67 16 144/63 (90) 92 Nasal Cannula 3.0 05/10/18 11:10 97.7 97.7 Weight Weight [ ] Input and Output Intake and Output Intake and Output 05/10/18 07:00 Intake Total 550 ml Output Total 650 ml Balance -100 ml Intake Oral 550 ml Output Urine Total 650 ml # Voids 7 Laboratory Labs Laboratory Tests Test 05/10/18 08:30 05/10/18 13:30 Prothrombin Time 14.9 SEC (11.7-14.0) Prothromb Time International Ratio 1.2 (0.8-1.1) Activated Partial Thromboplast Time 30 SEC (24-38) Body Fluid pH 7.47 Physical Exam HEENT: Neck Supple W Full Motion Chest: Symmetric LUNGS: Other (diminished bases with faint wheeze and upper rhonchi) Heart: S1S2, RRR (paced ) Abdomen: Soft N/T Extremities: No Calf Tenderness, Other (trace LE edema) Neurology: alert, follow commands Assessment Assessment 1. Acute on chronic diastolic/systolic CHF: improving post L thoracentesis 2. COPD/pulmonary HTN/pleural effusion: O2 dependent. PAP 39 mmHg 3. DRY ROLLER-D in situ: ([facility]). Intermittent pacing. No significant arrhythmias per interrogation although fluid overload has been noted. Battery life 5 yrs. Chronic inc RA threshold, decrease sensing 0.3 mv. VS episodes due to loss of atrial sensing Changed RA outpt from 3 to 4.5 V, Changed RA sensitivity from 0.3 mv to 015 mv 4. Hx of ICM: past EF at 35% 04/2017 and now at 55%. apical wall is akinetic with restrictive diastolic dysfunction. 5. HTN; controlled 6. HLP 7. CAD: past CABG x2, unknown vessels Follows with [facility] cardiology (Dr. Renee) 8. CKD3 9. Mild AI 10. Debility/ataxia Recommendations 1. Continue ASA/statin. Continue with toprol 100 mg and may increase per BP trend. 2. Continue with lasix therapy. K replacement 3. Continue with secondary prevention. Maintain conservative measures and follow up with [facility] cardiology. [facility] Records: Admitted at [facility] on 04/08/2018 for CHF Hx of PSVT and NSVT MPI 12/01/2017 no ischemia/reversibility and noted with fixed inferior/apical defect compatible with previous infarct. EF at 45% Chronic venous insufficiency with venous stasis ulcers ANY MCGRAW MD 05/10/183: CARDIO Progress Notes Plan Plan Pt. seen and examined. Agree with above MANAGER BANQUET note. Switch to oral diuretics in a.m. Supportive care. Ok to DC tomorrow from CV standpoint. AMILCAR HOOD APRN May 10, 2018 14:53 ANY MCGRAW MD May 10, 2018 19:23
[2018-05-10] MEDS: CYANOCOBALAMIN (VITAMIN B-12) 1,000 MCG TABLET. PO SCH (14:54)
--- NOTE | 2018-05-10 15:24 | RAD ---
Ultrasound Guided Thoracentesis, left side Indication: Adult male with left pleural effusion Sedation: Local anesthesia only Sterility: The procedure was performed in its entirety using appropriate elements of sterile technique. Technique and Findings: Following informed consent, the patient was prepped and draped in the usual sterile fashion. Ultrasound interrogation of the area of interest was performed revealing the presence of a pleural fluid collection. 1% Lidocaine was used to achieve local anesthesia over the area of interest. A small dermatotomy was made and a 5F Aod-p-ibbyunet catheter was advanced under ultrasound guidance into the pleural space [id number] cc's of thin yanely fluid was removed. The catheter was then removed and hemostasis was achieved with manual compression. Impression: US thoracentesis as described.
[2018-05-10] MEDS: POTASSIUM CHLORIDE 20 MEQ TABLET.ER. PO SCH (15:25)
--- NOTE | 2018-05-10 15:57 | RAD ---
Portable chest, 05/10/2018: HISTORY: Postthoracentesis evaluation Comparison is made to a study from 05/08/2018. The heart is enlarged. A transvenous pacing device with 3 leads is again noted. The pulmonary vascularity is prominent. There has been decrease in volume of the left pleural effusion status post thoracentesis. There is now a small left pneumothorax with components superomedially and in the left lateral costophrenic angle. There is moderate persistent atelectasis and infiltrate in the left lung. This may represent a "trapped lung". There is a small amount of right pleural fluid and basilar atelectasis as better demonstrated on yesterday's CT study. No right-sided pneumothorax is seen. IMPRESSION: 1. Moderate ongoing atelectasis/infiltrate in the left lung. 2. Small left pneumothorax status post left thoracentesis. 3. Small right pleural effusion and basilar atelectasis Electronically signed by: Yvon Trinidad MD (05/10/2018 3:54 PM) [facility]
[2018-05-10] MEDS: ATORVASTATIN CALCIUM 10 MG TABLET. PO SCH (20:47)
[2018-05-10] MEDS: ACETAMINOPHEN 500 MG TABLET PO PRN (21:31)
--- NOTE | 2018-05-11 00:44 | PN ---
DATE: SUBJECTIVE: The patient is resting, slightly propped up in bed, in no apparent distress, sleepy but arousable. On questioning him, he denied any chest pain, shortness of breath. He has had CT scan of the chest without contrast, which showed that the patient has increasing large left pleural effusion with complete atelectasis of the left lower lobe and partial atelectasis of the left upper lobe, a small right sided pleural effusion with mild right lower lobe atelectasis, hazy ground glass opacities, interlobular septal thickening, both lungs suggesting mild pulmonary edema, cardiomegaly with extensive coronary artery calcification, unchanged dilatation of the ascending aorta. The patient is n.p.o., as he is scheduled for paracentesis. PHYSICAL EXAMINATION: GENERAL: When I examined him, he looked pale. No jaundice, cyanosis or thyromegaly. No jugular venous distention. No limb edema. VITAL SIGNS: His heart rate was 63, blood pressure was 144/69, temperature was 97.5, respiratory rate was 18, and oxygen saturation was 94% on 2 L of oxygen. HEAD, EYES, EARS, NOSE AND THROAT: Showed normocephalic, atraumatic. NECK: Supple. HEART: Showed normal first and second sounds. No gallop or murmur. CHEST: Shows central trachea, equally reduced expansion, reduced air entry. Dull percussion, note on the left side with absent breath sounds. I could not appreciate any crepitation or rhonchi. ABDOMEN: Distended, soft, nontender. NEUROLOGIC: He is sleepy, but arousable. Cranial nerves intact. He moves extremities without difficulty. He is mostly bedbound, chair bound. His intake over the last 24 hours was 350, output was 1000. LABORATORY WORK: As of yesterday showed a white cell count 5300, hemoglobin 10, hematocrit 30, MCV 99, and platelet count of 154,000. Her chemistry showed a serum sodium 143, potassium 4.1, chloride 101, bicarbonate 43, BUN of 32, creatinine 1.4, estimated GFR was 48 mL per minute. Her glucose 104 and calcium was 9.2, magnesium 2.2. ASSESSMENT AND PLAN: Acute on chronic systolic congestive heart failure, chronic obstructive pulmonary disease, pulmonary hypertension, pleural effusion. The patient has automatic implantable cardioverter defibrillator in place. The patient has ischemic cardiomyopathy, with most recent ejection fraction was 35%, hyperlipidemia, coronary artery disease status post coronary artery bypass graft, chronic kidney disease, aortic stenosis. The patient was seen by the employment manager and had a CT scan of the chest showed large left-sided pleural effusion, for which he is scheduled for thoracentesis this morning. MESFIN TERRELL MD DR: CORNELL/thomas JOB#: [id number] / [id number]
[2018-05-11 03:00] VITALS: BP 145/67
[2018-05-11 04:19] LABS: HEMATOCRIT 28.7 % (39.0-53.0); HEMOGLOBIN 9.8 g/dL (13.0-17.5); RED BLOOD COUNT 2.93 x10^6/uL (4.30-5.70); RED CELL DISTRIBUTION WIDTH 14.3 % (11.5-14.5); WHITE BLOOD COUNT 6.5 x10^3/uL (4.0-11.0)
[2018-05-11 04:50] LABS: ALBUMIN 2.6 g/dL (3.4-5.0); ALBUMIN/GLOBULIN RATIO 0.7 (1.0-1.7); CALCIUM 8.9 mg/dL (8.5-10.1); CREATININE 1.5 mg/dL (0.7-1.3); GFR 44.5; POTASSIUM 4.3 mmol/L (3.5-5.1); TOTAL BILIRUBIN 0.6 mg/dL (0.2-1.0); TOTAL PROTEIN 6.3 g/dL (6.4-8.2)
[2018-05-11 07:27] VITALS: BP 131/60
[2018-05-11] MEDS: IPRATRPIUM/ALBUTEROL 0.5/2.5MG 3 ML NEBU. NEB SCH ×2 (07:43→11:25)
[2018-05-11] MEDS: BUDESONIDE 0.5 MG/2 ML NEBU. NEB SCH (07:43)
[2018-05-11] MEDS: CYANOCOBALAMIN (VITAMIN B-12) 1,000 MCG TABLET. PO SCH (08:18)
[2018-05-11] MEDS: METOPROLOL SUCC 24HR ER 100 MG TAB.ER.24H. PO SCH (08:19)
[2018-05-11] MEDS: POTASSIUM CHLORIDE 20 MEQ TABLET.ER. PO SCH (08:19)
[2018-05-11] MEDS: FUROSEMIDE 40 MG/4 ML VIAL. IVP SCH (08:20)
[2018-05-11] MEDS: CITALOPRAM 20 MG TABLET. PO SCH (08:20)
[2018-05-11] MEDS: ASCORBIC ACID 500 MG TABLET PO SCH (08:20)
[2018-05-11] MEDS: FERROUS SULFATE 325 MG TABLET. PO SCH (08:20)
[2018-05-11] MEDS: ASPIRIN ENTERIC COATED 81 MG TABLET.DR. PO SCH (08:20)
[2018-05-11] MEDS: MINERAL OIL/PETROLATUM TOPICAL CREAM 113GM JAR. TP SCH (09:00)
[2018-05-11 10:25] VITALS: BP 112/59
[2018-05-11] MEDS ORDERED: FURO80TA3 PO (10:33)
--- NOTE | 2018-05-11 10:43 | PDOC ---
PULMONARY PROGRESS NOTES Subjective no soa Vitals Vital Signs Date Time Temp Pulse Resp B/P (MAP) Pulse Ox O2 Delivery O2 Flow Rate FiO2 05/11/18 10:25 97.6 63 18 112/59 (76) 95 Nasal Cannula 2.0 97.6 General: Alert, No acute distress Lungs: Other (decrease bs left base) Cardiovascular: S1, S2, Other Abdomen: Soft, Non-tender Extremities: Other (1+edema) Labs Laboratory Tests Test 05/10/18 08:30 05/10/18 13:30 05/11/18 03:00 Prothrombin Time 14.9 SEC (11.7-14.0) Prothromb Time International Ratio 1.2 (0.8-1.1) Activated Partial Thromboplast Time 30 SEC (24-38) Body Fluid pH 7.47 White Blood Count 6.5 x10^3/uL (4.0-11.0) Red Blood Count 2.93 x10^6/uL (4.30-5.70) Hemoglobin 9.8 g/dL (13.0-17.5) Hematocrit 28.7 % (39.0-53.0) Mean Corpuscular Volume 98 fL (79-100) Mean Corpuscular Hemoglobin 33 pg (25-35) Mean Corpuscular Hemoglobin Concent 34 g/dL (31-37) Red Cell Distribution Width 14.3 % (11.5-14.5) Platelet Count 141 x10^3/uL (140-400) Sodium Level 143 mmol/L (136-145) Potassium Level 4.3 mmol/L (3.5-5.1) Chloride Level 102 mmol/L (98-107) Carbon Dioxide Level 41 mmol/L (21-32) Anion Gap 0 (6-14) Blood Urea Nitrogen 39 mg/dL (8-26) Creatinine 1.5 mg/dL (0.7-1.3) Estimated GFR (Cockcroft-Gault) 44.5 BUN/Creatinine Ratio 26 (6-20) Glucose Level 108 mg/dL (70-99) Calcium Level 8.9 mg/dL (8.5-10.1) Total Bilirubin 0.6 mg/dL (0.2-1.0) Aspartate Amino Transf (AST/SGOT) 17 U/L (15-37) Alanine Aminotransferase (ALT/SGPT) 14 U/L (16-63) Alkaline Phosphatase 56 U/L (46-116) Total Protein 6.3 g/dL (6.4-8.2) Albumin 2.6 g/dL (3.4-5.0) Albumin/Globulin Ratio 0.7 (1.0-1.7) Laboratory Tests Test 05/10/18 13:30 05/11/18 03:00 Body Fluid pH 7.47 White Blood Count 6.5 x10^3/uL (4.0-11.0) Red Blood Count 2.93 x10^6/uL (4.30-5.70) Hemoglobin 9.8 g/dL (13.0-17.5) Hematocrit 28.7 % (39.0-53.0) Mean Corpuscular Volume 98 fL (79-100) Mean Corpuscular Hemoglobin 33 pg (25-35) Mean Corpuscular Hemoglobin Concent 34 g/dL (31-37) Red Cell Distribution Width 14.3 % (11.5-14.5) Platelet Count 141 x10^3/uL (140-400) Sodium Level 143 mmol/L (136-145) Potassium Level 4.3 mmol/L (3.5-5.1) Chloride Level 102 mmol/L (98-107) Carbon Dioxide Level 41 mmol/L (21-32) Anion Gap 0 (6-14) Blood Urea Nitrogen 39 mg/dL (8-26) Creatinine 1.5 mg/dL (0.7-1.3) Estimated GFR (Cockcroft-Gault) 44.5 BUN/Creatinine Ratio 26 (6-20) Glucose Level 108 mg/dL (70-99) Calcium Level 8.9 mg/dL (8.5-10.1) Total Bilirubin 0.6 mg/dL (0.2-1.0) Aspartate Amino Transf (AST/SGOT) 17 U/L (15-37) Alanine Aminotransferase (ALT/SGPT) 14 U/L (16-63) Alkaline Phosphatase 56 U/L (46-116) Total Protein 6.3 g/dL (6.4-8.2) Albumin 2.6 g/dL (3.4-5.0) Albumin/Globulin Ratio 0.7 (1.0-1.7) Medications Active Scripts Medications Dose Route/Sig Max Daily Dose Days Date Category Dose Instructions Vitamin C (Ascorbate Calcium) 500 Mg Tablet 500 Mg PO DAILY08 05/08/18 Reported Senna Plus Tablet (Sennosides/Docusate Sodium) 1 Each Tablet 2 Each PO PRN DAILY PRN 05/08/18 Reported Metoprolol Tartrate 100 Mg Tablet 100 Mg PO DAILY08 05/08/18 Reported Lasix (Furosemide) 80 Mg Tablet 1 Tab PO DAILY 05/08/18 Reported Eucerin Creme (Mineral Oil/White Petrolatum) 120 Gm Cream..g. 1 Deven TP BID 05/08/18 Reported apply to lower legs bid Escitalopram Oxalate 10 Mg Tablet 1 Tab PO DAILY 05/08/18 Reported Acetaminophen 500 Mg Tablet 1 Tab PO Q6HRS 05/08/18 Reported Breo Ellipta 100-25 Mcg Inh (Fluticasone/Vilanterol) 1 Each Aer.pow.ba 1 Puff INH DAILY 30 11/17/15 Rx Vitamin B-12 (Cyanocobalamin (Vitamin B-12)) 1,000 Mcg Tablet 1,000 Mcg PO DAILY 09/12/15 Reported Lasix (Furosemide) 40 Mg Tablet 40 Mg PO 3X/WEEK 09/12/15 Reported Iron (Ferrous Sulfate) 325 Mg Tablet 325 Mg PO DAILY 09/12/15 Reported Aspir 81 (Aspirin) 81 Mg Tablet.dr 1 Tab PO DAILY 07/15/14 Reported Lipitor (Atorvastatin Calcium) 10 Mg Tablet 1 Tab PO QHS 07/15/14 Reported K-Tab (Potassium Chloride) 10 Meq Tablet.er 10 Meq PO DAILY 07/15/14 Reported Impression . 1. Acute hypoxic respiratory failure secondary to increasing left-sided pleural effusion. Likely etiology is related to congestive heart failure, acute on chronic. s/p left thoracentesis, results P 2. Highly suspected [id number] systolic heart failure with increasing left-sided effusion. 3. Abnormal chest x-ray with increasing left-sided effusion and also markedly elevated left hemidiaphragm with some compressive atelectasis versus infiltrate in the left lower lobe. The effusion appears to be partially loculated. We will obtain noncontrast CT chest for further evaluation. 4. Acute kidney injury. 5. No significant history of tobacco use. Plan . 1. Continue with present diuresis. 2. CMP/ last echo had an EF of 30-35%.recent echo with diastolic dysfunction/ normal EF 3. Noncontrast CT chest c/w moderate left effusion. thoracentesis done. await analysis 4. Continue bronchodilators. 5. Continue oxygen. 6. At this time, we will hold off on any antibiotics 7. Discussed with RN / CXR better post tap. ok with dc to [facility] Oleary MD May 11, 2018 10:43
--- NOTE | 2018-05-11 12:27 | DISCH ---
DISCHARGE DISCHARGE INFORMATION: FINAL DIAGNOSIS Problems Medical Problems: (1) CHF (congestive heart failure) Status: Acute (2) Hypoxia Status: Acute (3) Pneumonia Status: Acute CONDITION ON DISCHARGE: Stable CODE STATUS: Code Status: Full CARE HOME: SNF STAY <30 DAYS: Yes POST DISCHARGE ORDERS: ACTIVITY ORDERS: Activity as tolerated WOUND/INCISION CARE: Change dressing OTHER WOUND INSTRUCTIONS: every three days using Aquasel and xerfoam gauze CHECKS AFTER DISCHARGE: CHECKS AFTER DISCHARGE: Weigh Yourself Daily (daily weight) TREATMENT/EQUIPMENT ORDERS: ADAPTIVE EQUIPMENT NEEDED: Wheelchair RESPIRATORY EQUIPMENT NEEDED: Oxygen, Nebulizer DISCHARGE MEDICATIONS: Home Meds Active Scripts Fluticasone/Vilanterol (BREO ELLIPTA 100-25 MCG INH) 1 Each Aer.pow.ba, 1 PUFF INH DAILY for 30 Days, 1 Refill Prov:CAIN ESTRADA MD 11/17/15 Reported Medications Ascorbate Calcium (VITAMIN C) 500 Mg Tablet, 500 MG PO DAILY08, TAB 05/08/18 Sennosides/Docusate Sodium (SENNA PLUS TABLET) 1 Each Tablet, 2 EACH PO PRN DAILY PRN for CONSTIPATION, TAB 05/08/18 Metoprolol Tartrate (METOPROLOL TARTRATE) 100 Mg Tablet, 100 MG PO DAILY08 for FOR HYPERTENSION, #60 TAB 0 Refills 05/08/18 Furosemide (LASIX) 80 Mg Tablet, 1 TAB PO DAILY, #90 TAB 3 Refills 05/08/18 Mineral Oil/Petrolatum,White (EUCERIN CREME ) 120 Gm Cream..g., 1 MARGIE TP BID for WOUND CARE, #1 TUBE apply to lower legs bid 05/08/18 Escitalopram Oxalate (ESCITALOPRAM OXALATE) 10 Mg Tablet, 1 TAB PO DAILY, #30 TAB 3 Refills 05/08/18 Acetaminophen (ACETAMINOPHEN) 500 Mg Tablet, 1 TAB PO Q6HRS, #60 TAB 05/08/18 Cyanocobalamin (Vitamin B-12) (VITAMIN B-12) 1,000 Mcg Tablet, 1000 MCG PO DAILY 09/12/15 Furosemide (LASIX) 40 Mg Tablet, 40 MG PO 3X/WEEK, TAB 09/12/15 Ferrous Sulfate (IRON) 325 Mg Tablet, 325 MG PO DAILY 09/12/15 Aspirin (ASPIR 81) 81 Mg Tablet.dr, 1 TAB PO DAILY, #30 TAB 5 Refills 07/15/14 Atorvastatin Calcium (LIPITOR) 10 Mg Tablet, 1 TAB PO QHS, #90 TAB 1 Refill 07/15/14 Potassium Chloride (K-TAB) 10 Meq Tablet.er, 10 MEQ PO DAILY, TAB.SR 07/15/14 MESFIN TERRELL MD May 11, 2018 12:27
--- NOTE | 2018-05-11 13:30 | DS ---
DATE OF DISCHARGE: 05/11/2018 HOSPITAL COURSE: The patient is an 83-year-old male patient, who was a resident at [facility] in [place] and was admitted with increasing shortness of breath. He was evaluated by the bacteriologist dairy as well as the manufacturing cost estimator. He has had a chest x-ray, which showed left side pleural effusion and a CT scan of the chest without contrast showed that he has large left-sided pleural effusion with complete atelectasis of his left lower lobe and pleural atelectasis of the left upper lobe. There was also small right pleural effusion, mild right lower lobe atelectasis. There is a hazy ground-glass opacity and interlobular septal thickening in both lungs, suggesting mild pulmonary edema. There was also cardiomegaly with extensive coronary artery calcification and unchanged dilatation of the ascending aorta. He was treated with IV Lasix 40 mg twice a day and underwent thoracentesis and about 1500 mL of straw-colored fluid removed. Chest x-ray post procedure showed moderate ongoing atelectasis, infiltrate in the left lung, small left pneumothorax, status post left thoracentesis, small left pleural effusion and basilar atelectasis. The patient remained stable; and in consultation with Dr. Plunkett and Dr. Morel, the bacteriologist dairy, decision was made to discharge him back to [facility] in [place] to continue on oral furosemide 80 mg once a day and continue with all other medication. When I saw him this morning, he was resting almost flat in bed, in no apparent respiratory distress. On questioning him, he denied any chest pain or shortness of breath. Denied any cough, phlegm or hemoptysis. The nursing staff stated he had an uneventful night. PHYSICAL EXAMINATION: GENERAL: When I examined him, he looked pale. No jaundice, cyanosis or thyromegaly. No jugular venous distention. No lower limb edema. VITAL SIGNS: His heart rate was 63, blood pressure was 112/59, temperature was 97.6, respiratory rate was 18 and oxygen saturation was 95% on 2 liters of oxygen by nasal cannula. HEENT: Examination of the head, eyes, ears, nose and throat showed normocephalic, atraumatic. NECK: Supple. HEART: Showed normal first and second heart sounds. No gallop, rub or murmur. CHEST: Clear to auscultation. No crepitation or rhonchi. ABDOMEN: Distended, soft and nontender. No guarding or rigidity. No organomegaly. All hernial orifices intact. Bowel sounds normal. NEUROLOGIC: He is awake, alert, responding appropriately. All cranial nerves intact. He moves upper extremities to much good extent than his lower extremities. He is mostly bedbound, chair bound. His intake over the last 24 hours was 1240, output was 1500. LABORATORY DATA: His lab work as of this morning showed a white cell count of 6500, hemoglobin 10, hematocrit 30, MCV 98 and platelet count of 141,000. His chemistry showed a serum sodium 143, potassium 4.3, chloride 102, bicarbonate 41, BUN is 39, creatinine 1.5, estimated GFR was 44 mL per minute, his glucose was 108 and calcium was 8.9. Total bilirubin, AST, ALT, alkaline phosphatase were normal. Total protein was 6.3. Albumin was 2.9. His serum triglycerides were 36, total cholesterol was 111, LDL was 74, VLDL was 7 and HDL cholesterol was 30; ratio was 3.7. TSH was 1.3 to 1.289. DISCHARGE MEDICATIONS: He will be discharged back to [facility] on furosemide 80 mg once a day, Tylenol 500 mg every 6 hours as needed, ascorbic calcium for vitamin C 500 mg once a day, aspirin 81 mg once a day, atorvastatin for Lipitor 10 mg at bedtime, cyanocobalamin 1000 mcg p.o. daily, escitalopram oxalate 10 mg once a day, ferrous sulfate 325 mg daily, Breo Ellipta 100/25 one puff twice a day, furosemide, metoprolol 100 mg daily, potassium chloride 10 mEq once a day and Senna-S one tablet once a day. FINAL DISCHARGE DIAGNOSES: 1. Xngyv-ju-etzrnqe systolic congestive heart failure, improving, status post one and half liter of thoracentesis, chronic obstructive pulmonary disease, pulmonary hypertension and pleural effusion. The patient is oxygen dependent. His pulmonary artery pressure was 39 mmHg. The patient has an AICD, [place] intermittent pacing. No significant arrhythmias were interrogated, although fluid overload apparently has been noted. His battery life is 5 years. He has a history of ischemic cardiomyopathy. Ejection fraction was 35% in 04/2017, now at 55%. Apical wall is akinetic with restrictive diastolic dysfunction. 2. Hypertension is well controlled. 3. Hyperlipidemia is well controlled. 4. Coronary artery disease, status post coronary artery bypass graft x 2. 5. Chronic kidney disease. 6. Debility and weakness. MESFIN TERRELL MD DR: CORNELL/thomas JOB#: [id number] / [id number]
--- NOTE | 2018-05-14 15:07 | PATHOLOGY ---
Note [facility] Accession Number: [id number] TESTS RESULT FLAG UNITS REF RANGE LAB Clinician Provided Cytology Information No. of containers..01 Other (Miscellaneous) Source: LEFT PLEURAL FLUID DIAGNOSIS: LEFT PLEURAL FLUID NEGATIVE FOR MALIGNANT CELLS. FEW REACTIVE MESOTHELIAL CELLS IDENTIFIED WITHIN A BACKGROUNG OF MANY SMALL LYMPHOCYTES. Signed out by: Floyd Keith MD, Pathologist NPI- [id number] Performed by: Ángela Ruiz, Music Librarian ([facility]) Gross description: 01 32ML, YELLOW, CLEAR /LCS FLAG LEGEND: L-Low Normal,H-High Normal,LL-Alert Low,HH-Alert High <-Panic Low,>-Panic High,A-Abnormal,AA-Critical Abnormal Performed at: [address] [place] [address] Jese Renee MD, [address] [place] [address] Floyd Keith MD, Specimen Comment: A courtesy copy of this report has been sent to Specimen Comment: [phone]. Specimen Comment: Report sent to Performed at: [address], [place], [place] [id number] MD Jese Renee MD Phone: [phone]
== END 2018-05-11 14:50 | DRG 682 ==
LOC: ER 11:29 → ED HOLD 14:51 → 2 NORTH 18:06
PROVIDERS: ADMIT Internal Medicine; ATTEND Internal Medicine
PROC: 0W9B3ZZ Drainage of Left Pleural Cavity, Percutaneous Approach (ICD-10-PCS; principal; 2018-05-08)
DX: N17.9 Acute kidney failure, unspecified (principal); J18.9 Pneumonia, unspecified organism; I50.43 Acute on chronic combined systolic (congestive) and diastolic (congestive) heart failure; J96.01 Acute respiratory failure with hypoxia; I13.0 Hypertensive heart and chronic kidney disease with heart failure and stage 1 through stage 4 chronic kidney disease, or unspecified chronic kidney disease; J44.0 Chronic obstructive pulmonary disease with (acute) lower respiratory infection; J98.11 Atelectasis; J90 Pleural effusion, not elsewhere classified; E78.5 Hyperlipidemia, unspecified; I25.10 Atherosclerotic heart disease of native coronary artery without angina pectoris; I25.5 Ischemic cardiomyopathy; I27.20 Pulmonary hypertension, unspecified; I35.0 Nonrheumatic aortic (valve) stenosis; F32.9 Major depressive disorder, single episode, unspecified; I73.9 Peripheral vascular disease, unspecified; Z96.649 Presence of unspecified artificial hip joint; I87.2 Venous insufficiency (chronic) (peripheral); Z95.810 Presence of automatic (implantable) cardiac defibrillator; I87.8 Other specified disorders of veins; Z96.659 Presence of unspecified artificial knee joint; K21.9 Gastro-esophageal reflux disease without esophagitis; N18.3 Chronic kidney disease, stage 3 (moderate); Z80.8 Family history of malignant neoplasm of other organs or systems; Z82.49 Family history of ischemic heart disease and other diseases of the circulatory system; Z95.1 Presence of aortocoronary bypass graft; Z83.3 Family history of diabetes mellitus; Z99.81 Dependence on supplemental oxygen; Z88.0 Allergy status to penicillin; Z79.899 Other long term (current) drug therapy
CPT/HCPCS: 32555; 36415; 71045; 71250; 80048; 80053; 80061; 80076; 81001; 83615; 83690; 83735; 83880; 83986; 84157; 84443; 84484; 85025; 85027; 85610; 85730; 87071; 87075; 87641; 88112; 90471; 90756; 93005; 93306; 94640; 94760; 96365; 96375; J1940; J1956; J7620; J7626; 92610; 99285-25; Q2035